=== PATIENT | male | born 1955 | race African-American/Black ===

== ENCOUNTER 2017-12-30 06:51 | Emergency (ER) | payer BC ==
[2017-12-30] MEDS ORDERED: DIPHENHYDRAMINE HCL 50 MG/ML VIAL IV ONE (08:07)
[2017-12-30] MEDS ORDERED: PROCHLORPERAZINE EDISYLATE INJ 10 MG/2 ML VIAL IV ONE (08:07)
--- NOTE | 2017-12-30 08:13 | ER Document Report ---
ED General - General Chief Complaint: Headache >24 hrs old Stated Complaint: HEADACHE, BLURRED VISION Time Seen by Provider: 12/30/17 07:58 TRAVEL OUTSIDE OF THE [place] IN LAST 30 DAYS: No - HPI Notes: Patient is a 62-year-old male with a history of type 2 diabetes and hypertension who presents to the ED complaining of a frontal headache above his eyes and to his maxillary area below his eyes times 9 days. Patient states that his symptoms did improve when he was evaluated in urgent care and placed on prednisone as well as an antibiotic for possible sinus infection. Patient states that he had to stop the prednisone due to elevated blood glucose. Patient states that he had one episode last week when he was driving and had double vision and some blurriness. He did see his eye doctor for this issue which was unremarkable aside from the already noted small cataract vs glaucoma setting in. Patient states that his headache is dull and is fairly constant throughout the day. Patient states he does continue to get some blurriness intermittently, but no feeling of a curtain being pulled down. He is eating and drinking without any difficulties. He is urinating normally and having normal bowel movements. He is able to ambulate without any difficulties. Pain does not radiate otherwise. Denies any recent illness. No injury. He is not on blood thinners. Pt did have nasal carmelo/discharge with the start of the TELLEZ. Denies any fever, head injury, neck pain, changes in speech/mentation/hearing, URI, sore throat, chest pain, palpitations, syncope, cough, shortness of breath , wheeze, dyspnea, abdominal pain, nausea/vomiting/diarrhea, urinary retention, dysuria, hematuria, loss of control of bowel or bladder, numbness/tingling, saddle anesthesia, muscle paralysis/weakness, or rash. - Related Data Allergies/Adverse Reactions: Lsdolei-Rsa-Qzl Reductase Inhibitor Allergy (Intermediate, Verified 12/30/17 06: 53) MUSCLES ACHE dextromethorphan HBr [From NyQuil] Adverse Reaction (Intermediate, Verified 06:53) FAINTING, PASS OUT doxylamine [From NyQuil] Adverse Reaction (Intermediate, Verified 12/30/17 06:53 ) FAINTING, PASS OUT pseudoephedrine HCl [From NyQuil] Adverse Reaction (Intermediate, Verified 11/25 /18 06:53) FAINTING, PASS OUT Past Medical History - Social History Smoking Status: Never Smoker Frequency of alcohol use: None Drug Abuse: None Family History: Reviewed & Not Pertinent Patient has suicidal ideation: No Patient has homicidal ideation: No - Past Medical History Cardiac Medical History: Reports: Hx Hypertension Denies: Hx Coronary Artery Disease, Hx Heart Attack Pulmonary Medical History: Reports: Hx Asthma, Hx Bronchitis Denies: Hx COPD, Hx Pneumonia Neurological Medical History: Denies: Hx Cerebrovascular Accident, Hx Seizures Endocrine Medical History: Reports: Hx Diabetes Mellitus Type 2 Renal/ Medical History: Denies: Hx Peritoneal Dialysis Musculoskeletal Medical History: Denies Hx Arthritis - Immunizations Hx Diphtheria, Pertussis, Tetanus Vaccination: Yes Hx Pneumococcal Vaccination: 02/06/12 Review of Systems - Review of Systems -: Yes All other systems reviewed and negative Physical Exam - Vital signs Vitals: Temp Pulse Resp BP Pulse Ox 98 F 82 16 179/79 H 96 12/30/17 06:53 12/30/17 06:53 12/30/17 06:53 12/30/17 06:53 12/30/17 06:53 - Notes Notes: PHYSICAL EXAMINATION: GENERAL: Well-appearing, well-nourished and in no acute distress. A&Ox4. Answers questions appropriately. HEAD: Atraumatic, normocephalic. Non-tender. EYES: Pupils equal round and reactive to light, extraocular movements intact, sclera anicteric, conjunctiva are normal. + subtle horizontal nystagmus to left gaze. vis liao intact. Visual acuity 20/25 in left eye and 20/20 in right eye with my personal test being performed in the room. ENT: EAC clear b/l. TM's intact b/l without erythema, fluid, or perforation. Nares patent and without discharge. oropharynx clear without exudates. No tonsilar hypertrophy or erythema. Moist mucous membranes. + mild maxillary sinus tenderness. NECK: Normal range of motion, supple without lymphadenopathy. No rigidity/ meningismus. No midline tenderness. LUNGS: Breath sounds clear to auscultation bilaterally and equal. No wheezes rales or rhonchi. HEART: Regular rate and rhythm without murmurs, rubs, gallops. ABDOMEN: Soft, nontender, nondistended abdomen. No guarding, no rebound. Normal bowel sounds present. No CVA tenderness bilaterally. Musculoskeletal: Ext's b/l: FROM to passive/active. Strength 5+/5. No deficits noted. No bony tenderness of extremities. Extremities: No cyanosis, clubbing, or edema b/l. Peripheral pulses 2+. Capillary refill less than 2 seconds. NEUROLOGICAL: NIH 0. GCS 15. Cranial nerves grossly intact. Normal speech, normal gait. Normal sensory, motor exams. Reflexes 2+ b/l. ÁNGEL's negative. Pronator drift negative. Heel/falk, finger/nose wnl. Rhomberg neg. PSYCH: Normal mood, normal affect. SKIN: Warm, Dry, normal turgor, no rashes or lesions noted. Course - Re-evaluation Re-evalutation: 12/30/17 10:28 Patient is an afebrile, well-hydrated, 62-year-old male who presents to the ED with a frontal headache. Vitals are acceptable without significant tachycardia , tachypnea, or hypoxia. PE is otherwise unremarkable for any focal neurological deficits. GCS 15, cranial nerves grossly intact, NIH 0. Patient is nontoxic-appearing and is tolerating p.o. without difficulty. CT scan of the head was unremarkable for acute pathology and was obtained after review Dr. Kearns. Patient was given Toradol and Benadryl IM which resolved his headache. No further labs or imaging warranted at this time. Low suspicion for any acute glaucoma, temporal arteritis, meningitis, intracranial hemorrhage, ischemic stroke, or fracture at this time. Patient is aware that his condition can change from initial presentation and that he needs to monitor symptoms closely for any acute changes. Conservative measures for symptoms. Recheck with your PCM in 2-3 days. Return to the ED with any worsening/concerning symptoms otherwise as reviewed and discharge. Patient is in agreement. - Vital Signs Vital signs: Temp Pulse Resp BP Pulse Ox 98 F 82 16 179/79 H 96 12/30/17 06:53 12/30/17 06:53 12/30/17 06:53 12/30/17 06:53 12/30/17 06:53 Discharge - Discharge Clinical Impression: Headache Qualifiers: Headache type: unspecified Headache chronicity pattern: acute headache Intractability: not intractable Qualified Code(s): R51 - Headache Condition: Stable Disposition: HOME, SELF-CARE Instructions: Headache ([facility]) Additional Instructions: Rest, Ice/cool compress Tylenol/ibuprofen as needed Light stretches daily Strength exercises as able Moist heat and massage may help F/u with your PCP in 2-3 days for a recheck Consider consult(s) with Neurology for ongoing/worsening symptoms Return to the ED with any worsening symptoms and/or development of fever, headache, changes in behavior/mentation/vision/speech, chest pain, palpitations , syncope, shortness of breath, trouble breathing, abdominal pain, n/v/d, blood in stool/urine, loss of control of bowel/bladder, urinary retention, muscle weakness/paralysis, saddle anesthesia, numbness/tingling, or other worsening symptoms that are concerning to you. Forms: Elevated Blood Pressure Referrals: CHERYL PARDO MD [Primary Care Provider] - 01/01/18
[2017-12-30] MEDS ORDERED: DIPHENHYDRAMINE HCL 50 MG/ML VIAL IM ONE (08:50)
[2017-12-30] MEDS ORDERED: PROCHLORPERAZINE EDISYLATE INJ 10 MG/2 ML VIAL IM ONE (08:55)
--- NOTE | 2017-12-30 10:12 | RADIOLOGY REPORT (SQ) ---
EXAM DESCRIPTION: CT HEAD WITHOUT COMPLETED DATE/TIME: 12/30/2017 9:58 am REASON FOR STUDY: headache, frontal COMPARISON: None. TECHNIQUE: Axial images acquired through the brain without intravenous contrast. Images reviewed wi th bone, brain and subdural windows. Additional sagittal and coronal reconstructions were generated. Images stored on PACS. All CT scanners at this facility use dose modulation, iterative reconstruction, and/or weight based d osing when appropriate to reduce radiation dose to as low as reasonably achievable (ALARA). [facility]: Dose Right [facility]: CareDose [facility]: Dose Right [facility]: Teradose 4D [facility]: [employer] RADIATION DOSE: CT Rad equipment meets quality standard of care and radiation dose reduction techniq ues were employed. CTDIvol: 48.7 mGy. DLP: 1028 mGy-cm. mGy. LIMITATIONS: None. FINDINGS: VENTRICLES: Normal size and contour. CEREBRUM: No CT evidence of acute large territory ischemic change, acute intracranial hemorrhage, mas s effect, or midline shift. There is spotty bifrontal and biparietal low attenuation in the white ma tter likely small vessel disease. CEREBELLUM: No masses. No hemorrhage. No alteration of density. No evidence for acute infarction. EXTRAAXIAL SPACES: No fluid collections. No masses. ORBITS AND GLOBE: No intra- or extraconal masses. Normal contour of globe without masses. CALVARIUM: No fracture. PARANASAL SINUSES: Prior endoscopic sinus surgery, with widening of the maxillary sinus outlets, rese ction of the ethmoid septa, and unwinding of the frontal sinus outlets. There is minimal lumpy mucou s membrane thickening in the left maxillary sinus without air-fluid level to suggest acute sinusitis SOFT TISSUES: No mass or hematoma. OTHER: No other significant finding. IMPRESSION: No acute intracranial changes No CT evidence of acute sinusitis EVIDENCE OF ACUTE STROKE: NO. COMMENT: Quality ID # [id number]: Final reports with documentation of one or more dose reduction techniques (e.g., Automated exposure control, adjustment of the mA and/or kV according to patient size, use of iterative reconstruction technique) TECHNICAL DOCUMENTATION: JOB ID: [id number] [employer]- All Rights Reserved Reading location - IP/workstation name: [email or web address]
[2017-12-30 10:46] VITALS: BP 171/76
== END 2017-12-30 10:46 | disposition home or self-care (01) ==
LOC: ER 06:51
DX: R51 Headache (principal); H53.8 Other visual disturbances; R09.81 Nasal congestion; R09.89 Other specified symptoms and signs involving the circulatory and respiratory systems; J45.909 Unspecified asthma, uncomplicated; E11.9 Type 2 diabetes mellitus without complications; I10 Essential (primary) hypertension
CPT/HCPCS: 99284; 96372; 70450; J1200; J0780

== ENCOUNTER 2018-04-23 09:59 | Emergency (ER) | payer BC ==
[2018-04-23] MEDS ORDERED: ASPIRIN 81 MG TABLET, CHEWABLE PO ONE (10:10)
--- NOTE | 2018-04-23 11:01 | RADIOLOGY REPORT (SQ) ---
EXAM DESCRIPTION: CHEST SINGLE VIEW COMPLETED DATE/TIME: 04/23/2018 10:52 am REASON FOR STUDY: dizziness, rhonchi RUL COMPARISON: None. EXAM PARAMETERS: NUMBER OF VIEWS: One view. TECHNIQUE: Single frontal radiographic view of the chest acquired. RADIATION DOSE: NA LIMITATIONS: None. FINDINGS: LUNGS AND PLEURA: No opacities, masses or pneumothorax. No pleural effusion. MEDIASTINUM AND HILAR STRUCTURES: No masses. Contour normal. HEART AND VASCULAR STRUCTURES: Heart normal in size. Normal vasculature. BONES: No acute findings. HARDWARE: None in the chest. OTHER: No other significant finding. IMPRESSION: 1. NO ACUTE RADIOGRAPHIC FINDING IN THE CHEST. TECHNICAL DOCUMENTATION: JOB ID: [id number] [employer]- All Rights Reserved Reading location - IP/workstation name: [email or web address]
[2018-04-23 11:03] LABS: ABSOLUTE BASOPHILS # (AUTO) 0.1 10^3/uL (0.0-0.2); ABSOLUTE EOSINOPHILS # (AUTO) 0.2 10^3/uL (0.0-0.6); ABSOLUTE LYMPHOCYTES (AUTO) 2.8 10^3/uL (0.5-4.7); ABSOLUTE MONOCYTES (AUTO) 0.6 10^3/uL (0.1-1.4); ABSOLUTE NEUT (AUTO) 5.7 10^3/uL (1.7-8.2); BASOPHILS % (AUTO) 0.7 % (0-2); EOSINOPHILS % (AUTO) 1.6 % (0-6); HEMATOCRIT 39.6 % (37.9-51.0); HEMOGLOBIN 13.6 g/dL (13.5-17.0); LYMPHOCYTES % (AUTO) 30.4 % (13-45); MEAN CORPUSCULAR HEMOGLOBIN 29.3 pg (27.0-33.4); MEAN CORPUSCULAR HGB CONC 34.3 g/dL (32.0-36.0); MEAN CORPUSCULAR VOLUME 85 fl (80-97); PLATELET COUNT 431 10^3/uL (150-450); RED BLOOD COUNT 4.64 10^6/uL (4.35-5.55); RED CELL DISTRIBUTION WIDTH 13.8 % (11.5-14.0); SEGMENTED NEUTROPHILS % (AUTO) 61.3 % (42-78); TOTAL CELLS COUNTED % (AUTO) 100 %; WHITE BLOOD COUNT 9.3 10^3/uL (4.0-10.5)
[2018-04-23 11:26] LABS: ALANINE AMINOTRANSFERASE 63 U/L (21-72); ALBUMIN 4.9 g/dL (3.5-5.0); ALKALINE PHOSPHATASE 82 U/L (38-126); ANION GAP 15 (5-19); ASPARTATE AMINO TRANSFERASE 58 U/L (17-59); BILIRUBIN,DIRECT 0.3 mg/dL (0.0-0.4); BILIRUBIN,TOTAL 0.5 mg/dL (0.2-1.3); BLOOD UREA NITROGEN 22 mg/dL (7-20); CALCIUM 10.6 mg/dL (8.4-10.2); CARBON DIOXIDE 28 mmol/L (22-30); CHLORIDE 97 mmol/L (98-107); CREATINE KINASE 170 U/L (55-170); GLUCOSE 247 mg/dL (75-110); POTASSIUM 3.9 mmol/L (3.6-5.0); SODIUM 140.1 mmol/L (137-145); TOTAL PROTEIN 8.9 g/dL (6.3-8.2)
[2018-04-23 11:37] LABS: CREATINE KINASE MB 0.74 ng/mL (<4.55); TROPONIN I < 0.012 ng/mL
--- NOTE | 2018-04-23 14:54 | ER Document Report ---
Entered by JOSSUE SALCIDO SCRIBE 04/23/18 1020 Acting as scribe for:CODY ROSALES DO ED Dizziness/Weakness - General Mode of Arrival: Ambulatory Information source: Patient TRAVEL OUTSIDE OF THE [place] IN LAST 30 DAYS: No <CODY ROSALES - Last Filed: 04/23/18 14:54> <TETE POWERS - Last Filed: 04/23/18 20:25> - General Chief Complaint: Dizziness Stated Complaint: DIZZINESS Time Seen by Provider: 04/23/18 10:04 Notes: Patient is a 63 year old male presenting to the emergency department complaining of dizziness and diaphoresis onset this morning. 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 He states he sat down and proceeded to feel dizzy further stating he felt like he was going to pass out. He states he has had similar symptoms in the past which was attributed to low blood sugar and a possible allergy to beef. He also reports a cough and states he has been taking his inhaler which usually resolves his symptoms. He states he currently feels "pretty good". Patient denies loss of consciousness, nausea, chest pain, trouble breathing, blurry vision. EMS reports a blood glucose of 289. Patient states this a little higher than normal and reports his blood glucose being elevated lately. (JOSSUE SALCIDO) Patient is a 63 year old male presenting to the emergency department complaining of dizziness and diaphoresis onset this morning. 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 He states he sat down and proceeded to feel dizzy further stating he felt like he was going to pass out. He states he has had similar symptoms in the past which was attributed to low blood sugar and a possible allergy to beef. He also reports a cough and states he has been taking his inhaler which usually resolves his symptoms. He states he currently feels "pretty good". Patient denies loss of consciousness, nausea, chest pain, trouble breathing, blurry vision. EMS reports a blood glucose of 289. Patient states this a little higher than normal and reports his blood glucose being elevated lately. (CODY ROSALES) - Related Data Allergies/Adverse Reactions: Dvhpkcd-Elu-Yhm Reductase Inhibitor Allergy (Intermediate, Verified 04/23/18 10:01) MUSCLES ACHE dextromethorphan HBr [From NyQuil] Adverse Reaction (Intermediate, Verified 04/23/18 10:01) FAINTING, PASS OUT doxylamine [From NyQuil] Adverse Reaction (Intermediate, Verified 04/23/18 10:01) FAINTING, PASS OUT pseudoephedrine HCl [From NyQuil] Adverse Reaction (Intermediate, Verified 04/23/18 10:01) FAINTING, PASS OUT Past Medical History - General Information source: Patient - Social History Smoking Status: Unknown if Ever Smoked Chew tobacco use (# tins/day): No Frequency of alcohol use: None Drug Abuse: None Family History: Reviewed & Not Pertinent Patient has suicidal ideation: No Patient has homicidal ideation: No - Past Medical History Cardiac Medical History: Reports: Hx Hypertension Pulmonary Medical History: Reports: Hx Asthma, Hx Bronchitis Endocrine Medical History: Reports: Hx Diabetes Mellitus Type 2 - Immunizations Hx Diphtheria, Pertussis, Tetanus Vaccination: Yes Hx Pneumococcal Vaccination: 02/06/12 <CODY ROSALES - Last Filed: 04/23/18 14:54> Review of Systems - Review of Systems Constitutional: See HPI, Diaphoresis EENT: No symptoms reported Cardiovascular: See HPI, Dizziness Respiratory: No symptoms reported Gastrointestinal: No symptoms reported Genitourinary: No symptoms reported Male Genitourinary: No symptoms reported Musculoskeletal: No symptoms reported Skin: No symptoms reported Hematologic/Lymphatic: No symptoms reported Neurological/Psychological: No symptoms reported -: Yes All other systems reviewed and negative <CODY ROSALES - Last Filed: 04/23/18 14:54> Physical Exam <CODY ROSALES - Last Filed: 04/23/18 14:54> - Vital signs Vitals: Temp Resp Pulse Ox 97.7 F 24 H 100 04/23/18 10:05 04/23/18 10:05 04/23/18 10:05 - Notes Notes: GENERAL: Alert, interacts well. No acute distress. HEAD: Normocephalic, atraumatic. EYES: Pupils equal, round, and reactive to light. Extraocular movements intact. ENT: Oral mucosa moist, tongue midline. NECK: Full range of motion. Supple. Trachea midline. LUNGS: Slight crackles in the RUL. No respiratory distress. HEART: Regular rate and rhythm. No murmurs, gallops, or rubs. ABDOMEN: Soft, non-tender. Non-distended. Bowel sounds present in all 4 quadrants. No guarding, rigidity, or rebound. EXTREMITIES: Moves all 4 extremities spontaneously. NEUROLOGICAL: Alert and oriented x3. Normal speech. PSYCH: Normal affect, normal mood. SKIN: Warm, dry, normal turgor. No rashes or lesions noted. (JOSSUE SALCIDO) GENERAL: Alert, interacts well. No acute distress. HEAD: Normocephalic, atraumatic. EYES: Pupils equal, round, and reactive to light. Extraocular movements intact. ENT: Oral mucosa moist, tongue midline. NECK: Full range of motion. Supple. Trachea midline. LUNGS: Slight crackles in the RUL. No respiratory distress. HEART: Regular rate and rhythm. No murmurs, gallops, or rubs. ABDOMEN: Soft, non-tender. Non-distended. Bowel sounds present in all 4 quadrants. No guarding, rigidity, or rebound. EXTREMITIES: Moves all 4 extremities spontaneously. NEUROLOGICAL: Alert and oriented x3. Normal speech. PSYCH: Normal affect, normal mood. SKIN: Warm, dry, normal turgor. No rashes or lesions noted. (CODY ROSALES) Course - Laboratory Result Diagrams: 04/23/18 10:40 04/23/18 10:40 - EKG Interpretation by Ks Rate: Normal - 85 Rhythm: NSR Elysian/QRS: Left axis deviation <CODY ROSALES - Last Filed: 04/23/18 14:54> - Laboratory Result Diagrams: 04/23/18 10:40 04/23/18 10:40 <TETE POWERS - Last Filed: 04/23/18 20:25> - Re-evaluation Re-evalutation: 04/23/18 14:42 CBC unremarkable, CMP shows elevated BUN at 22 and elevated creatinine 1.45, elevated glucose at 247, last BUN and creatinine are from over 3 years ago. Cardiac enzymes negative. Initial troponin negative. Chest x-ray shows no acute process. Repeat troponin pending. EKG nonischemic. If repeat troponin remains normal and patient remains asymptomatic he will be discharged to home. (CODY ROSALES) 04/23/18 15:[address] Rosales, patient experiencing dizziness with possible near syncopal episode today, denies any chest pain, repeat troponin pending if this is negative patient can safely be discharged home 04/23/18 15:57 Patient resting comfortably, denies any further dizziness since being in the emergency department, second troponin is negative therefore patient will be discharged home, he reports his primary care provider at [facility], was advised to follow-up with them in the next 1-2 days or return if any worsening of symptoms or additional concerns, patient acknowledges understanding and agreement with this plan 04/23/18 20:25 (TETE POWERS) - Vital Signs Vital signs: Temp Pulse Resp BP Pulse Ox 97.7 F 21 H 150/70 H 100 04/23/18 10:05 04/23/18 16:01 04/23/18 16:01 04/23/18 16:01 - Laboratory Laboratory results interpreted by me: 04/23/18 10:40 Chloride 97 L BUN 22 H Creatinine 1.45 H Est GFR ( Amer) 59 L Est GFR (Non-Af Amer) 49 L Glucose 247 H Calcium 10.6 H Total Protein 8.9 H - EKG Interpretation by Me Additional EKG results interpreted by me: 04/23/18 14:43 T wave flattening in leads I and aVL as well as V5 and T wave inversions in V6. (CODY ROSALES) Discharge <CODY ROSALES - Last Filed: 04/23/18 14:54> <TETE POWERS - Last Filed: 04/23/18 20:25> - Discharge Clinical Impression: Dizziness Condition: Stable Disposition: HOME, SELF-CARE Additional Instructions: Today we did not find any explanation for your dizziness and lightheadedness. There was no sign of heart attack. You did have a small amount of damage to your kidneys. It is important that this is followed up on as an outpatient. The last labs we have on you before today are from 2014 so I do not know when this damage occurred. Your blood sugar is also elevated in the 200s, continuing high blood sugar can contribute to further damage to your kidneys. It is important that you take your diabetic medications as directed and follow-up closely with your primary care physician as an outpatient. I personally performed the services described in the documentation, reviewed and edited the documentation which was dictated to the scribe in my presence, and it accurately records my words and actions.
[2018-04-23 16:13] VITALS: BP 150/70
--- NOTE | 2018-04-23 17:20 | EKG REPORT ---
SEVERITY:- ABNORMAL ECG - SINUS RHYTHM NONSPECIFIC T ABNORMALITIES, LATERAL LEADS : Confirmed by: Joe Fink 23-Apr-2018 17:19:36
== END 2018-04-23 16:17 | disposition home or self-care (01) ==
LOC: ER 09:59
DX: R42 Dizziness and giddiness (principal); E11.65 Type 2 diabetes mellitus with hyperglycemia; R61 Generalized hyperhidrosis; R05 Cough; I10 Essential (primary) hypertension; J45.909 Unspecified asthma, uncomplicated; Z88.8 Allergy status to other drugs, medicaments and biological substances
CPT/HCPCS: 36415; 71045; 80053; 82550; 82553; 84484; 85025; 93005; 93010; 99284

== ENCOUNTER → 2020-02-16 | Outpatient (CLI) | payer BC ==
[~2020-02-16] MED LIST: COVID-19 VACCINE (PFIZER)/PF 30 MCG/0.3 ML VIAL IM ONE; EPINEPHRINE INJ/PF 1 MG/1 ML AMPULE IM PRN
== END ==
LOC: EMPHEALTH 06:58
PROVIDERS: ATTEND Internal Medicine
DX: Z23 Encounter for immunization (principal)
CPT/HCPCS: 91300